=== PATIENT | female | born 1985 | race Caucasian/White ===

== ENCOUNTER 2020-08-19 01:48 | Emergency (ER) | payer MEDICAID ==
[~2020-08-19] VITALS: Ht 157.5 cm; Wt 212.0 kg
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
--- NOTE | 2020-08-19 02:27 | NUR ---
ED provider at bedside
--- NOTE | 2020-08-19 02:43 | NUR ---
ED MD at bedside
[2020-08-19 04:21] VITALS: BP 119/64
--- NOTE | 2020-08-19 04:30 | NUR ---
D/c instructions discussed with pt. Verbalizes understanding r/t f/u care and returning to ED with worsening sx. Ambulating independently, steady gait
== END 2020-08-19 04:32 | disposition home or self-care (01) ==
LOC: ED 02:18
DX: S29.012A Strain of muscle and tendon of back wall of thorax, initial encounter (principal); S20.219A Contusion of unspecified front wall of thorax, initial encounter; M54.5 Low back pain; V49.49XA Driver injured in collision with other motor vehicles in traffic accident, initial encounter; Y93.89 Activity, other specified; Y92.89 Other specified places as the place of occurrence of the external cause; Y99.8 Other external cause status
CPT/HCPCS: 99281